=== PATIENT | male | born 1970 | race Caucasian/White ===

== ENCOUNTER 2018-12-11 15:21 | Emergency (ER) | payer MEDICAID, OTHER ==
[~2018-12-11] VITALS: Ht 177 cm; Wt 87.6 kg
[2018-12-11] MEDS ORDERED: ASPIRIN 81 MG CHEW (CHILDREN'S ASA) PO ONE (15:45)
--- NOTE | 2018-12-11 15:45 | ED Chest Pain ---
General Chief Complaint: Chest Pain Stated Complaint: CHEST PAIN, NECK AND BACK PAIN Nursing Triage Note: ARRIVED VIA AMB TO ROOM 01 WITH COMPLAINTS OF CHEST PAIN X2 DAYS BUT TODAY STARTED HAVING LEFT ARM PAIN. STATES HE TOOK X2 DIAZAPAM THAT WAS NOT HIS TO TRY TO CALM HIS NERVES BUT IT HAS NOT HELPED. Nursing Sepsis Screen: No Definite Risk History of Present Illness Date Seen by Provider: Dec 11, 2018 Time Seen by Provider: 15:41 Initial Comments 48-year-old male has a constellation of concerns the main one being chest pain over the last 48 hrs, he was seen in the clinic and referred to ER the worst of his chest pain occurred many hours before this ER visit, its central substernal and left chest, he can't really describe it, no shortness of breath, no nausea vomiting he also has had some left arm pain/numb tingling which however seems not to occur at the same time (and he says a few weeks ago he fell backwards onto his shoulder and left arm) and the arm pain started way before the chest pain He apparently is pretty physically active and denies that the chest pain ever was brought on by physical exertion actually pt says he is kind of achy all over though he denies fever he has a persistent non-productive cough that he thinks might be related to quitting smoking 6 weeks ago does not seem to describe reflux-type symptoms it's unclear whether he might be having some mild upper abdominal pain, but that seems to be less part of the picture 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 and seems rather stressed out No known cardiac history not diabetic no family history of coronary artery disease he was a smoker until 6 weeks ago Allergies and Home Medications Allergies Coded Allergies: No Known Drug Allergies (Unverified , 12/11/18) Patient Home Medication List Home Medication List Reviewed: Yes Review of Systems Review of Systems Constitutional: No fever EENTM: No Symptoms Reported Respiratory: Denies Shortness of Air Cardiovascular: Chest Pain; Denies Edema, Denies Palpitations, Denies Syncope Gastrointestinal: No Symptoms Reported; Denies Nausea, Denies Vomiting Genitourinary: No Symptoms Reported Musculoskeletal: other (achy all over) Skin: no symptoms reported Past Lzwptrj-Ntdmra-Jldzbt Hx Patient Social History Alcohol Use: Denies Use Recreational Drug Use: No Smoking Status: Current Everyday Smoker Type Used: Cigars Recent Foreign Travel: No Contact w/Someone Who Travel: No Recent Infectious Disease Expo: No Recent Hopitalizations: No Physical Abuse: No Sexual Abuse: No Mistreated: No Fear: No Seasonal Allergies Seasonal Allergies: No Past Medical History Surgeries: No Respiratory: No Cardiac: No Neurological: No Genitourinary: No Gastrointestinal: No Musculoskeletal: No Endocrine: No HEENT: No Cancer: No Psychosocial: No Integumentary: No Physical Exam Vital Signs Vital Signs - First Documented 12/11/18 15:21 Temp 36.2 Pulse 88 Resp 16 B/P (MAP) 127/80 (96) Pulse Ox 98 O2 Delivery Room Air Capillary Refill : Less Than 3 Seconds Height, Weight, BMI Height: '" Weight: lbs. oz. kg; 27.00 BMI Method: General Appearance: No Apparent Distress HEENT: PERRL/EOMI Neck: Supple Respiratory: Lungs Clear Cardiovascular: Regular Rate, Rhythm, No Gallop, No JVD, No Murmur Gastrointestinal: Normal Bowel Sounds, Non Tender, Soft Extremity: No Calf Tenderness; No Pedal Edema Progress/Results/Core Measures Results/Orders Lab Results Laboratory Tests Test 12/11/18 15:32 Range/Units White Blood Count 9.8 4.3-11.0 10^3/uL Red Blood Count 5.19 4.35-5.85 10^6/uL Hemoglobin 15.7 13.3-17.7 G/DL Hematocrit 46 40-54 % Mean Corpuscular Volume 89 80-99 FL Mean Corpuscular Hemoglobin 30 25-34 PG Mean Corpuscular Hemoglobin Concent 34 32-36 G/DL Red Cell Distribution Width 12.4 10.0-14.5 % Platelet Count 335 130-400 10^3/uL Mean Platelet Volume 9.3 7.4-10.4 FL Prothrombin Time 13.5 12.2-14.7 SEC INR Comment 1.0 0.8-1.4 Sodium Level 141 135-145 MMOL/L Potassium Level 4.2 3.6-5.0 MMOL/L Chloride Level 104 98-107 MMOL/L Carbon Dioxide Level 26 21-32 MMOL/L Anion Gap 11 5-14 MMOL/L Blood Urea Nitrogen 12 7-18 MG/DL Creatinine 1.00 0.60-1.30 MG/DL Estimat Glomerular Filtration Rate > 60 BUN/Creatinine Ratio 12 Glucose Level 140 H 70-105 MG/DL Calcium Level 9.1 8.5-10.1 MG/DL Corrected Calcium 8.9 8.5-10.1 MG/DL Total Bilirubin 0.4 0.1-1.0 MG/DL Aspartate Amino Transf (AST/SGOT) 25 5-34 U/L Alanine Aminotransferase (ALT/SGPT) 26 0-55 U/L Alkaline Phosphatase 69 40-136 U/L Troponin I < 0.30 <0.30 NG/ML Total Protein 7.0 6.4-8.2 GM/DL Albumin 4.2 3.2-4.5 GM/DL Lipase 48 8-78 U/L My Orders Orders - NESS DENNEY MD Iv Heplock-Insert (Order) (12/11/18 15:25) Ekg Tracing (12/11/18 15:25) Pipe Connector (12/11/18 15:25) Troponin I Fs (12/11/18 15:25) Cbc No Diff (12/11/18 15:25) Comprehensive Metabolic Panel (12/11/18 15:25) Protime With Inr (12/11/18 15:25) Chest 1 View Ap/Pa Only (12/11/18 15:25) Lipase (12/11/18 15:39) Aspirin Chewable Tablet (Baby Aspirin Ch (12/11/18 15:45) Lorazepam Injection (Ativan Injection) (12/11/18 16:15) Vital Signs/I&O 12/11/18 15:21 Temp 36.2 Pulse 88 Resp 16 B/P (MAP) 127/80 (96) Pulse Ox 98 O2 Delivery Room Air Blood Pressure Mean: 96 Comment EKG shows a sinus rhythm at 89 there may be a hint of upsloping ST elevation in the inferior leads but this doesn't appear pathologic otherwise normal EKG Departure Impression Primary Impression: Chest pain Qualified Codes: R07.9 - Chest pain, unspecified Additional Impression: Anxiety Disposition: 01 HOME, SELF-CARE Condition: Improved Departure-Patient Inst. Decision time for Depature: 16:09 Referrals: MIHAI SHAFFER MD (PCP) Primary Care Physician Patient Instructions: Chest Pain (DC), Anxiety, Adult (DC) Scripts Lorazepam (Ativan) 1 Mg Tablet 1 MG PO BID PRN PRN for ANXIETY for 7 Days, #14 TAB Prov: JUMANA,NESS P MD 12/11/18 NESS DENNEY MD Dec 11, 2018 15:45
[2018-12-11 15:47] LABS: HEMOGLOBIN 15.7 G/DL (13.3-17.7); MEAN PLATELET VOLUME 9.3 FL (7.4-10.4); RED CELL DISTRIBUTION WIDTH 12.4 % (10.0-14.5); WHITE BLOOD COUNT 9.8 10^3/uL (4.3-11.0)
--- NOTE | 2018-12-11 15:50 | NUR ---
PT STATES HE TOOK X4 BABY ASA THIS AM. DR NOTIFIED ET ORDER CHANGED.
--- NOTE | 2018-12-11 15:57 | Diagnostic Imaging Report ---
INDICATION: Chest pain radiating to the left arm. TIME OF EXAM: 3:20 p.m. COMPARISON: No prior studies are available for comparison. FINDINGS: The heart size is normal. The pulmonary vascularity is unremarkable. The lungs are clear. No infiltrate, effusion or pneumothorax is detected. IMPRESSION: No acute cardiopulmonary process is detected. Dictated by: Dictated on workstation # [id number]
[2018-12-11 15:59] LABS: CARBON DIOXIDE 26 MMOL/L (21-32); CHLORIDE 104 MMOL/L (98-107); POTASSIUM 4.2 MMOL/L (3.6-5.0); SODIUM 141 MMOL/L (135-145)
[2018-12-11 16:00] LABS: ALANINE AMINOTRANSFERASE 26 U/L (0-55); ALBUMIN 4.2 GM/DL (3.2-4.5); ALKALINE PHOSPHATASE 69 U/L (40-136); BILIRUBIN,TOTAL 0.4 MG/DL (0.1-1.0); BUN/CREATININE RATIO 12; CALCIUM 9.1 MG/DL (8.5-10.1); GFR ESTIMATED > 60; GLUCOSE 140 MG/DL (70-105)
[2018-12-11 16:01] LABS: PROTHROMBIN TIME PATIENT 13.5 SEC (12.2-14.7)
[2018-12-11] MEDS ORDERED: LORA-405 PO (16:11)
[2018-12-11] MEDS ORDERED: LORazepam INJ 2 MG/ML (ATIVAN) VIAL ONE (16:12)
[2018-12-11] MEDS ORDERED: LORazepam INJ 2 MG/ML (ATIVAN) VIAL IVP ONE (16:15)
[2018-12-11 16:30] VITALS: BP 127/80
== END 2018-12-11 16:30 | disposition home or self-care (01) ==
LOC: ER FS 15:23
DX: R07.9 Chest pain, unspecified (principal); R41.9 Unspecified symptoms and signs involving cognitive functions and awareness; F17.290 Nicotine dependence, other tobacco product, uncomplicated
CPT/HCPCS: 36415; 71045; 80053; 83690; 84484; 85027; 85610; 93005

== ENCOUNTER 2020-08-28 07:22 | Emergency (ER) | payer MEDICAID ==
[~2020-08-28] VITALS: Ht 182.8 cm; Wt 88.7 kg
[~2020-08-28 07:22] MED LIST: LORA-405 PO
--- NOTE | 2020-08-28 07:35 | ED Back Pain ---
General Stated Complaint: LOWER BACK PAIN History of Present Illness Date Seen by Provider: Aug 28, 2020 Time Seen by Provider: 07:35 Initial Comments 50-year-old male presents with left-sided low back pain with some mild radiation to his left hip and leg. Patient reports that happened 3 days ago when lifting and window air conditioner and carrying it up some stairs. Patient reports that he did not miss a lift correctly. He denies any bowel or bladder issues. He tried some ibuprofen about 45 minutes prior to arrival. He had no actual trauma. Pain is more on the left lateral lumbar region and not midline. No other systemic complaints Allergies and Home Medications Allergies Coded Allergies: No Known Drug Allergies (Unverified , 12/11/18) Home Medications Cyclobenzaprine HCl 10 Mg Tablet, 10 MG PO Q8H PRN for SPASMS Prescribed by: JACQUIE CLARK on 08/28/20 0748 Lorazepam 1 Mg Tablet, 1 MG PO BID PRN PRN for ANXIETY Prescribed by: NESS DENNEY on 12/11/18 1611 Patient Home Medication List Home Medication List Reviewed: Yes Review of Systems Constitutional: No chills, No fever Respiratory: No cough, No short of breath Cardiovascular: No chest pain, No palpitations Gastrointestinal: No abdominal pain, No nausea, No vomiting Genitourinary: no symptoms reported Musculoskeletal: see HPI, back pain Skin: no symptoms reported Psychiatric/Neurological: No Symptoms Reported Past Dcmlpoh-Tpvfxp-Tskwbd Hx Seasonal Allergies Seasonal Allergies: No Past Medical History Surgeries: No Respiratory: No Cardiac: No Neurological: No Genitourinary: No Gastrointestinal: No Musculoskeletal: No Endocrine: No HEENT: No Cancer: No Psychosocial: No Integumentary: No Physical Exam Vital Signs Vital Signs - First Documented 08/28/20 07:30 Temp 36.5 Pulse 81 Resp 18 B/P (MAP) 121/86 (98) Pulse Ox 98 O2 Delivery Room Air Capillary Refill : Height, Weight, BMI Height: '" Weight: lbs. oz. kg; 27.00 BMI Method: General Appearance: No Apparent Distress, WD/WN Neck: Full Range of Motion, Normal Inspection Cardiovascular: Regular Rate, Rhythm Respiratory: Lungs Clear, Normal Breath Sounds Gastrointestinal: Non Tender, Soft Back: No Decreased Range of Motion; Muscle Spasm; No Vertebral Tenderness Extremity: Normal Capillary Refill, Normal Range of Motion, No Pedal Edema Neurologic/Psychiatric: Alert, Oriented x3, No Motor/Sensory Deficits, Normal Mood/Affect Skin: Normal Color, Warm/Dry Progress/Results/Core Measures Results/Orders My Orders Orders - EDUARDOJACQUIE DO Orphenadrine Inj (Ed Only) (Norflex Inje (08/28/20 07:43) Vital Signs/I&O 08/28/20 08/28/20 07:30 07:55 Temp 36.5 36.5 Pulse 81 81 Resp 18 18 B/P (MAP) 121/86 (98) 121/86 (98) Pulse Ox 98 98 O2 Delivery Room Air Progress Progress Note : Progress Note Patient's physical exam and symptoms are consistent with a low back strain with sciatica following lifting. At this time x-ray is not indicated. We will treat him with anti-inflammatory and muscle relaxant. If symptoms do not improve in 5 to 7 days he should follow-up with a primary care provider for further outpatient evaluation Departure Impression Primary Impression: Lumbago with sciatica, left side Qualified Codes: M54.42 - Lumbago with sciatica, left side Disposition: 01 HOME, SELF-CARE Condition: Stable Departure-Patient Inst. Referrals: MIHAI SHAFFER MD (PCP/Family) Primary Care Physician Patient Instructions: Back Extension Exercises, Back Stretches on Floor, Low Back Pain in Adults Add. Discharge Instructions: 4% topical lidocaine with menthol to affected area as directed on package 800 mg ibuprofen 3 times a day or naproxen twice a day Warm moist heat to affected area Follow-up with your primary care provider in 7 to 10 days if symptoms or not improving or sooner if they continue to worsen Scripts Cyclobenzaprine HCl (Cyclobenzaprine HCl) 10 Mg Tablet 10 MG PO Q8H PRN for SPASMS, #15 TAB 0 Refills Prov: CELIA CLARKR L DO 08/28/20 CELIA CLARKR L DO Aug 28, 2020 07:35
[2020-08-28] MEDS ORDERED: ORPHENADRINE 60 MG/2 ML (NORFLEX) AMP (ED ONLY) IM STA (07:43)
[2020-08-28] MEDS ORDERED: CYCL10TA9 PO (07:48)
[2020-08-28 07:55] VITALS: BP 121/86
== END 2020-08-28 07:55 | disposition home or self-care (01) ==
LOC: EDUNIT# 07:22 → ER FS 07:29
DX: M54.42 Lumbago with sciatica, left side (principal)
CPT/HCPCS: 99284